=== PATIENT | female | born 1975 | race Caucasian/White ===

== ENCOUNTER 2020-08-11 06:14 | Day surgery (SDC) | payer OTHER ==
[~2020-08-11] VITALS: Ht 154.9 cm; Wt 65.3 kg
[2020-08-11] MEDS ORDERED: FERROUS GLUCON324 M1 PO (06:37)
[2020-08-11] MEDS ORDERED: OXYCODONE HCL5 MG PO ×2 (10:20→11:35)
[2020-08-11] MEDS ORDERED: COLACE 100MG C100 MG PO ×2 (10:20→11:35)
[2020-08-11] MEDS ORDERED: NAPROXEN 250 M250 MG PO ×2 (10:20→11:35)
[2020-08-11 15:20] LABS: HEMOGLOBIN 12.3 gm/dl (12.3-15.3)
[2020-08-11] MEDS ORDERED: ZOFRAN ODT 4 MG4 MG SL (16:54)
== END 2020-08-11 19:33 | disposition home or self-care (01) ==
LOC: OR 06:14 → OB 11:19 → OR 19:33
PROVIDERS: Obstetrics & Gynecology
PROC: 0UT74ZZ Resection of Bilateral Fallopian Tubes, Percutaneous Endoscopic Approach (ICD-10-PCS; 2020-08-11)
PROC: 0UT94ZZ Resection of Uterus, Percutaneous Endoscopic Approach (ICD-10-PCS; principal; 2020-08-11 08:00)
DX: D25.1 Intramural leiomyoma of uterus (principal); N80.0 Endometriosis of uterus; N72 Inflammatory disease of cervix uteri; N92.0 Excessive and frequent menstruation with regular cycle; K21.9 Gastro-esophageal reflux disease without esophagitis; Z88.5 Allergy status to narcotic agent; Z88.8 Allergy status to other drugs, medicaments and biological substances; Z79.899 Other long term (current) drug therapy; Z20.828 Contact with and (suspected) exposure to other viral communicable diseases
CPT/HCPCS: 36415; 84703; 85014; 85018; J0690; J1100; J1170; J1885; J2001; J2250; J2270; J2405; J2704; J2710; J2795; J3010; J7120